=== PATIENT | female | born 1975 | race Caucasian/White ===

== ENCOUNTER 2023-09-12 12:57 | Outpatient (OUT) | payer OTHER, SELFPAY ==
--- NOTE | 2023-09-12 | XR_ITS ---
The [address] [address] Patient Name: KERRY SARABIA MRN: [id number] date: 1975 Sex: F Assigned Patient Location: Current Patient Location: Accession/Order Number: [id number] Exam Date: 09/12/2023 12:58 Report Date: 09/12/2023 14:25 At the request of: DANIEL REED Procedure: XR foot RT min 3V EXAMINATION: XR ankle JASON min 3V, XR foot RT min 3V HISTORY: BILATERAL ANKLE PAIN COMPARISON: No relevant comparison available. FINDINGS: RIGHT FINDINGS: BONES: Single surgical staple lateral base of the fifth metatarsal. Mild plantar enthesopathic spurring of the calcaneus. Mild degenerative changes of the midfoot with marginal osteophyte formation no acute fracture or dislocation SOFT TISSUES: Negative. No visible soft tissue swelling. OTHER: Negative. LEFT FINDINGS: BONES: No acute fracture or dislocation. Mild enthesopathic spurring of the calcaneus at the Achilles and plantar insertions. Mild degenerative changes with marginal osteophyte formation SOFT TISSUES: Negative. No visible soft tissue swelling. OTHER: Negative. XR/XR foot RT min 3V IMPRESSION: RIGHT CONCLUSION: Degenerative changes LEFT CONCLUSION: Degenerative changes Electronically authenticated by: MARILIA HYDE Date: 09/12/2023 14:25
--- NOTE | 2023-09-12 | XR_ITS ---
The [address] [address] Patient Name: KERRY SARABIA MRN: [id number] date: 1975 Sex: F Assigned Patient Location: Current Patient Location: Accession/Order Number: [id number] Exam Date: 09/12/2023 12:58 Report Date: 09/12/2023 14:25 At the request of: DANIEL REED Procedure: XR ankle JASON min 3V EXAMINATION: XR ankle JASON min 3V, XR foot RT min 3V HISTORY: BILATERAL ANKLE PAIN COMPARISON: No relevant comparison available. FINDINGS: RIGHT FINDINGS: BONES: Single surgical staple lateral base of the fifth metatarsal. Mild plantar enthesopathic spurring of the calcaneus. Mild degenerative changes of the midfoot with marginal osteophyte formation no acute fracture or dislocation SOFT TISSUES: Negative. No visible soft tissue swelling. OTHER: Negative. LEFT FINDINGS: BONES: No acute fracture or dislocation. Mild enthesopathic spurring of the calcaneus at the Achilles and plantar insertions. Mild degenerative changes with marginal osteophyte formation SOFT TISSUES: Negative. No visible soft tissue swelling. OTHER: Negative. XR/XR ankle JASON min 3V IMPRESSION: RIGHT CONCLUSION: Degenerative changes LEFT CONCLUSION: Degenerative changes Electronically authenticated by: MARILIA HYDE Date: 09/12/2023 14:25
== END 2023-09-12 12:58 | disposition home or self-care (01) ==
PROVIDERS: Visit Provider Podiatrist Foot & Ankle Surgery
DX: M25.572 Pain in left ankle and joints of left foot (principal); M25.571 Pain in right ankle and joints of right foot; M79.671 Pain in right foot
CPT/HCPCS: 73610; 73630